=== PATIENT | female | born 1940 | race Caucasian/White ===

== ENCOUNTER 2021-02-09 11:52 | Inpatient (IN) | payer MEDICARE, OTHER ==
[~2021-02-09 11:52] MED LIST: Iopamidol 370 76% 100 ML VIAL ONE; Iopamidol-370 76% 500 ML 1 ML ONE
[2021-02-09] MEDS ORDERED: Fentanyl 100 MCG/2 ML VIAL ONE (12:19)
[2021-02-09] MEDS ORDERED: Heparin 10,000 UNITS/ 10 ML VIAL ONE (12:20)
[2021-02-09] MEDS ORDERED: Lidocaine 1% (PF) 30 ML VIAL ONE (12:26)
[2021-02-09 12:27] LABS: #Eosinphils 0.2 thou/uL (0.0-0.7); #Lymphocytes 1.7 thou/uL (1.20-3.40); #Monocytes 0.5 thou/uL (0.11-0.59); #Neutrophils 4.9 thou/uL (1.40-6.50); %Basophils 0.6 % (0.0-1.0); %Eosinophils 2.8 % (0.0-10.0); %Lymphocytes 22.9 % (21.0-51.0); %Monocytes 6.1 % (0.0-10.0); %Neutrophils 67.6 % (42.0-75.0); Hemoglobin 12.5 g/dL (12.0-16.0); Mean Corpuscular HGB CONC 32.5 g/dL (32.0-36.0); Mean Corpuscular Hemoglobin 31.2 pg (27.0-31.0); Mean Corpuscular Volume 95.8 fL (78.0-98.0); Mean Platelet Volume 9.1 fL (7.4-10.4); Platelet Count 199 thou/uL (130-400); RBC Distribution Width 12.7 % (11.5-14.5); Red Blood Cell (RBC) Count 4.02 mill/uL (4.20-5.40); White Blood Cell (WBC) Count 7.3 thou/uL (4.8-10.8)
[2021-02-09 12:41] LABS: INR-International Normal Ratio 1.1; Prothrombin Time 13.9 sec (12.0-14.7)
[2021-02-09] MEDS ORDERED: PHENYLEPHRINE-NS 100 MCG/ML 10 ML SYRINGE ONE ×2 (12:41→13:28)
[2021-02-09] MEDS ORDERED: Lidocaine 1% PF 5 ML VIAL ONE (12:41)
[2021-02-09] MEDS ORDERED: Rocuronium Bromide 10 MG/ML (10ML VIAL) ONE (12:41)
[2021-02-09] MEDS ORDERED: Dexamethasone 20 MG/5 ML VIAL ONE (12:41)
[2021-02-09] MEDS ORDERED: PROPOFOL 200 MG/20 ML VIAL ONE (12:41)
[2021-02-09] MEDS ORDERED: Succinylcholine 200 MG/10 ml SYRINGE FS ONE (12:41)
[2021-02-09] MEDS ORDERED: Ondansetron PF 4 MG/2 ML Vial ONE (12:41)
[2021-02-09 12:42] LABS: PTT 32.2 sec (22.9-36.1)
[2021-02-09 12:45] LABS: ALT (SGPT) Less than 7 U/L (8-55); AST (SGOT) 11 U/L (5-34); Albumin 3.3 g/dL (3.4-4.8); Alkaline Phosphatase 70 U/L (40-110); Anion Gap 13 mmol/L (10-20); BUN (Urea Nitrogen) 24 mg/dL (9.8-20.1); Bilirubin, Total 0.8 mg/dL (0.2-1.2); CK (CPK) 29 U/L (29-168); Calc. Creatinine Clearance 0 mL/min (70-130); Calcium 8.5 mg/dL (7.8-10.44); Carbon Dioxide 23 mmol/L (23-31); Chloride 103 mmol/L (98-107); Glucose 122 mg/dL (83-110); Potassium 4.1 mmol/L (3.5-5.1); Protein, Total 5.3 g/dL (5.8-8.1); Sodium 135 mmol/L (136-145)
[2021-02-09] MEDS ORDERED: Milk Of Magnesia 30 ML UDCUP PO PRN (13:26)
[2021-02-09] MEDS ORDERED: Acetaminophen 325 MG TAB PO PRN (13:26)
[2021-02-09] MEDS ORDERED: Communication Order-Pharmacy FS SCH (13:26)
[2021-02-09] MEDS ORDERED: Bisacodyl 10 MG SUPP PR PRN (13:26)
[2021-02-09] MEDS ORDERED: niCARdipine 25 MG in Sodium Chloride 0.9% 250 ML 240 ML IVPB PRN (13:26)
[2021-02-09] MEDS ORDERED: Propofol 1,000 MG/100 ML VIAL IV ONE (13:50)
[2021-02-09 14:25] LABS: Actual Bicarbonate (HCO3a) 16.7 mEq/L (22-28); Calcium, Ionized (arterial) 1.02 mmol/L (1.12-1.30); Carboxyhemoglobin (COHb) 1.3 gm% (0.0-3.0); Hemoglobin (Hb) 12.1 g/dL (12.0-16.0); O2 Tension (PaO2), arterial 162.3 mmHg (> 70.0); Potassium - ABG Lab 3.98 mmol/L (3.70-5.30); pH, Arterial 7.53 (7.35-7.45)
[2021-02-09 14:27] LABS: ALV-art Gradient 239.875 mmHg (0-20); CO2 Tension 20.5 mmHg (35.0-45.0); Puncture Site Arterial Line
[2021-02-09] MEDS ORDERED: Fentanyl CADD 100 ML ONE (14:44)
[2021-02-09] MEDS ORDERED: Lorazepam 2 MG/ML VIAL SLOW IVP PRN (15:15)
[2021-02-09] MEDS ORDERED: Fentanyl CADD 100 ML IV SCH (15:15)
[2021-02-09] MEDS ORDERED: Morphine 2 MG/ML VIAL SLOW IVP PRN (15:15)
[2021-02-09] MEDS ORDERED: Fentanyl BOLUS 250 ML IVPB PRN (15:15)
[2021-02-09] MEDS ORDERED: Propofol BOLUS 1,000 MG/100 ML VIAL IV PRN (15:15)
[2021-02-09] MEDS ORDERED: DISCONTINUE PREVIOUS NARCOTIC PAIN MEDICATIONS AND BENZODIAZEPINES FS SCH (15:15)
[2021-02-09] MEDS ORDERED: Pantoprazole 40 MG VIAL IVP SCH (15:45)
[2021-02-09] MEDS ORDERED: Dextrose 50% Abboject 50 ML SYRINGE SLOW IVP PRN (15:49)
[2021-02-09] MEDS ORDERED: Insulin Regular 300 UNITS/3 ML VIAL SC PRN (15:49)
[2021-02-09] MEDS ORDERED: Dextrose 5% in Water 1,000 ML IV PRN (15:49)
[2021-02-09] MEDS: Propofol 1,000 MG/100 ML VIAL IV PRN (16:51)
[2021-02-09] MEDS: Lactated Ringer's 1,000 ML IV SCH (19:25)
[2021-02-09] MEDS: Atorvastatin Calcium 40 MG TAB PO SCH (20:06)
[2021-02-09] MEDS: Docusate 100 MG CAP PO SCH (20:06)
[2021-02-10] MEDS: Propofol 1,000 MG/100 ML VIAL IV PRN (00:18)
[2021-02-10 04:03] LABS: #Lymphocytes 1.2 thou/uL (1.20-3.40); #Monocytes 0.6 thou/uL (0.11-0.59); #Neutrophils 14.2 thou/uL (1.40-6.50); %Basophils 0.1 % (0.0-1.0); %Eosinophils 0.1 % (0.0-10.0); %Lymphocytes 7.6 % (21.0-51.0); %Monocytes 3.6 % (0.0-10.0); %Neutrophils 88.6 % (42.0-75.0); Hemoglobin 12.9 g/dL (12.0-16.0); Mean Corpuscular HGB CONC 33.1 g/dL (32.0-36.0); Mean Corpuscular Hemoglobin 31.3 pg (27.0-31.0); Mean Corpuscular Volume 94.3 fL (78.0-98.0); Mean Platelet Volume 9.3 fL (7.4-10.4); Platelet Count 253 thou/uL (130-400); RBC Distribution Width 12.7 % (11.5-14.5); Red Blood Cell (RBC) Count 4.11 mill/uL (4.20-5.40)
[2021-02-10 04:44] LABS: Anion Gap 15 mmol/L (10-20); BUN (Urea Nitrogen) 24 mg/dL (9.8-20.1); Calc. Creatinine Clearance 47 mL/min (70-130); Calcium 8.4 mg/dL (7.8-10.44); Carbon Dioxide 22 mmol/L (23-31); Cardiac Risk 4.3 (Less than 4.5); Chloride 107 mmol/L (98-107); Cholesterol 126 mg/dl (< 200 Desired); Glucose 127 mg/dL (83-110); HDL Cholesterol 29 mg/dL (>60 Neg Risk); LDL Cholesterol, Calculated 76 mg/dL; Potassium 4.1 mmol/L (3.5-5.1); Sodium 140 mmol/L (136-145); Triglycerides 106 mg/dL (Less than 150)
[2021-02-10] MEDS: hydrALAZINE 20 MG/ML VIAL SLOW IVP PRN (08:39)
[2021-02-10] MEDS: Pantoprazole 40 MG VIAL IVP SCH (08:40)
[2021-02-10] MEDS: Docusate 100 MG CAP PO SCH ×2 (08:50→21:00)
[2021-02-10] MEDS: Polyethylene Glycol 3350 17 GM Packet PO SCH (08:50)
[2021-02-10] MEDS: Ondansetron PF 4 MG/2 ML Vial IVP SCH ×2 (10:44)
[2021-02-10] MEDS: Lactated Ringer's 1,000 ML IV SCH (14:51)
[2021-02-10] MEDS ORDERED: FLU VACC QS2021-22(65YR UP)/PF 240 MCG/0.7 ML SYRINGE IM ONE (15:30)
[2021-02-10] MEDS ORDERED: Sodium Chloride 0.9% 500 ML IVPB SCH (19:15)
[2021-02-10] MEDS: Atorvastatin Calcium 40 MG TAB PO SCH (21:00)
[2021-02-11] MEDS: Aspirin 325 mg Enteric Coated Tablet PO SCH (09:00)
[2021-02-11] MEDS: Docusate 100 MG CAP PO SCH ×2 (09:00→21:14)
[2021-02-11] MEDS ORDERED: Enoxaparin Sodium 30 MG/0.3 ML SYRINGE SC SCH (09:00)
[2021-02-11 09:33] LABS: #Basophils 0.1 thou/uL (0.0-0.2); #Eosinphils 0.1 thou/uL (0.0-0.7); #Lymphocytes 1.6 thou/uL (1.20-3.40); #Monocytes 1.3 thou/uL (0.11-0.59); #Neutrophils 11.7 thou/uL (1.40-6.50); %Basophils 0.4 % (0.0-1.0); %Eosinophils 0.4 % (0.0-10.0); %Lymphocytes 11.1 % (21.0-51.0); %Monocytes 8.7 % (0.0-10.0); %Neutrophils 79.4 % (42.0-75.0); Mean Corpuscular HGB CONC 32.6 g/dL (32.0-36.0); Mean Corpuscular Hemoglobin 30.9 pg (27.0-31.0); Mean Corpuscular Volume 94.8 fL (78.0-98.0); Mean Platelet Volume 9.5 fL (7.4-10.4); Platelet Count 193 thou/uL (130-400); Red Blood Cell (RBC) Count 3.89 mill/uL (4.20-5.40); White Blood Cell (WBC) Count 14.7 thou/uL (4.8-10.8)
[2021-02-11 09:54] LABS: Anion Gap 12 mmol/L (10-20); BUN (Urea Nitrogen) 31 mg/dL (9.8-20.1); Calc. Creatinine Clearance 44 mL/min (70-130); Carbon Dioxide 25 mmol/L (23-31); Chloride 108 mmol/L (98-107); Glucose 107 mg/dL (83-110); Sodium 141 mmol/L (136-145)
[2021-02-11] MEDS: Aspirin 300 MG Suppository PR SCH (09:58)
[2021-02-11] MEDS: Pantoprazole 40 MG VIAL IVP SCH (09:59)
[2021-02-11] MEDS ORDERED: Enoxaparin Sodium 40 MG/0.4 ML SYRINGE SC SCH (10:00)
[2021-02-11] MEDS: Polyethylene Glycol 3350 17 GM Packet PO SCH (13:07)
[2021-02-11] MEDS: Lactated Ringer's 1,000 ML IV SCH ×2 (13:08→18:13)
[2021-02-11] MEDS: Atorvastatin Calcium 40 MG TAB PO SCH (21:14)
[2021-02-12] MEDS: Dextrose 5 %-0.45 % NaCl 1,000 ML IV SCH ×2 (02:50→20:54)
[2021-02-12] MEDS ORDERED: Ondansetron PF 4 MG/2 ML Vial IVP PRN (07:30)
[2021-02-12] MEDS ORDERED: Senokot S 8.6-50 MG TAB PO PRN (07:30)
[2021-02-12] MEDS ORDERED: GUAIFENESIN SF SOLN 200 MG/10 ML UDCUP PO PRN (07:30)
[2021-02-12] MEDS ORDERED: Artificial Tear Sol 15 ML BOT EA EYE PRN (07:30)
[2021-02-12] MEDS ORDERED: Hydrocerin (Eucerin) Cream 120 gm Jar TOP PRN (07:30)
[2021-02-12] MEDS ORDERED: Sodium Chloride 0.65% Nasal 44 ML BOT EA NARE PRN (07:30)
[2021-02-12] MEDS ORDERED: Calcium Carbonate 500 MG ChewTAB PO PRN (07:30)
[2021-02-12] MEDS ORDERED: Loratadine 10 MG TAB PO PRN (07:30)
[2021-02-12] MEDS ORDERED: Cepastat Lozenges 1 LOZ PO PRN (07:30)
[2021-02-12] MEDS ORDERED: Loperamide HCl 2 MG CAP PO PRN (07:30)
[2021-02-12] MEDS ORDERED: Melatonin 3 MG TAB PO PRN (07:31)
[2021-02-12] MEDS: Pantoprazole 40 MG VIAL IVP SCH (08:57)
[2021-02-12] MEDS: Enoxaparin Sodium 40 MG/0.4 ML SYRINGE SC SCH (09:01)
[2021-02-12] MEDS: Aspirin 300 MG Suppository PR SCH (09:03)
[2021-02-12] MEDS: Aspirin 325 mg Enteric Coated Tablet PO SCH (09:06)
[2021-02-12] MEDS: Metoprolol Tartrate 25 MG TAB PO SCH ×2 (10:24→20:49)
[2021-02-12] MEDS: Docusate 100 MG CAP PO SCH ×2 (10:25→20:49)
[2021-02-12] MEDS: Polyethylene Glycol 3350 17 GM Packet PO SCH (10:27)
[2021-02-12] MEDS: Atorvastatin Calcium 40 MG TAB PO SCH (20:49)
[2021-02-13 06:30] LABS: #Basophils 0.1 thou/uL (0.0-0.2); #Eosinphils 0.3 thou/uL (0.0-0.7); #Lymphocytes 1.5 thou/uL (1.20-3.40); #Monocytes 0.8 thou/uL (0.11-0.59); #Neutrophils 6.9 thou/uL (1.40-6.50); %Basophils 0.6 % (0.0-1.0); %Eosinophils 3.5 % (0.0-10.0); %Lymphocytes 15.3 % (21.0-51.0); %Monocytes 8.2 % (0.0-10.0); %Neutrophils 72.4 % (42.0-75.0); Hemoglobin 12.1 g/dL (12.0-16.0); Mean Corpuscular HGB CONC 33.9 g/dL (32.0-36.0); Mean Corpuscular Hemoglobin 32.3 pg (27.0-31.0); Mean Corpuscular Volume 95.4 fL (78.0-98.0); Mean Platelet Volume 9.3 fL (7.4-10.4); Platelet Count 191 thou/uL (130-400); RBC Distribution Width 12.6 % (11.5-14.5); Red Blood Cell (RBC) Count 3.74 mill/uL (4.20-5.40); White Blood Cell (WBC) Count 9.5 thou/uL (4.8-10.8)
[2021-02-13 06:49] LABS: Anion Gap 12 mmol/L (10-20); BUN (Urea Nitrogen) 21 mg/dL (9.8-20.1); Calc. Creatinine Clearance 56 mL/min (70-130); Calcium 8.5 mg/dL (7.8-10.44); Carbon Dioxide 24 mmol/L (23-31); Chloride 107 mmol/L (98-107); Glucose 100 mg/dL (83-110); Magnesium 1.9 mg/dL (1.6-2.6); Phosphorus 2.7 mg/dL (2.3-4.7); Potassium 3.8 mmol/L (3.5-5.1); Sodium 139 mmol/L (136-145)
[2021-02-13] MEDS: Docusate 100 MG CAP PO SCH ×2 (10:35→20:20)
[2021-02-13] MEDS: Aspirin 325 MG TAB PO SCH (10:35)
[2021-02-13] MEDS: Aspirin 300 MG Suppository PR SCH (10:35)
[2021-02-13] MEDS: Enoxaparin Sodium 40 MG/0.4 ML SYRINGE SC SCH (10:35)
[2021-02-13] MEDS: Pantoprazole 40 MG VIAL IVP SCH (10:35)
[2021-02-13] MEDS: Polyethylene Glycol 3350 17 GM Packet PO SCH (10:36)
[2021-02-13] MEDS: Metoprolol Tartrate 50 MG TAB PO SCH ×2 (10:36→20:20)
[2021-02-13] MEDS: hydrALAZINE 20 MG/ML VIAL SLOW IVP PRN (12:11)
[2021-02-13] MEDS: Dextrose 5 %-0.45 % NaCl 1,000 ML IV SCH (20:20)
[2021-02-13] MEDS: Atorvastatin Calcium 40 MG TAB PO SCH (20:20)
[2021-02-13] MEDS: Labetalol HCl 100 MG/20 ML VIAL SLOW IVP PRN (23:00)
[2021-02-14] MEDS: Metoprolol Tartrate 50 MG TAB PO SCH ×2 (09:44→20:12)
[2021-02-14] MEDS: Docusate 100 MG CAP PO SCH ×2 (09:44→20:11)
[2021-02-14] MEDS: Aspirin 325 MG TAB PO SCH (09:44)
[2021-02-14] MEDS: Pantoprazole 40 MG VIAL IVP SCH (09:44)
[2021-02-14] MEDS: Aspirin 300 MG Suppository PR SCH (09:44)
[2021-02-14] MEDS: Polyethylene Glycol 3350 17 GM Packet PO SCH (09:44)
[2021-02-14] MEDS: Enoxaparin Sodium 40 MG/0.4 ML SYRINGE SC SCH (10:09)
[2021-02-14] MEDS: Dextrose 5 %-0.45 % NaCl 1,000 ML IV SCH (12:13)
[2021-02-14] MEDS: Labetalol HCl 100 MG/20 ML VIAL SLOW IVP PRN ×3 (12:19→20:46)
[2021-02-14] MEDS: Atorvastatin Calcium 40 MG TAB PO SCH (20:11)
[2021-02-15] MEDS: Labetalol HCl 100 MG/20 ML VIAL SLOW IVP PRN ×2 (00:02→04:29)
[2021-02-15] MEDS: Dextrose 5 %-0.45 % NaCl 1,000 ML IV SCH (07:40)
[2021-02-15] MEDS ORDERED: NIFEdipine XL 30 MG TAB PO SCH (09:00)
[2021-02-15] MEDS: Docusate 100 MG CAP PO SCH ×2 (09:00→21:50)
[2021-02-15] MEDS ORDERED: Metoprolol Tartrate 50 MG TAB PO SCH (14:00)
[2021-02-15] MEDS ORDERED: Amlodipine 10 MG TAB PO SCH (14:00)
[2021-02-15] MEDS: Polyethylene Glycol 3350 17 GM Packet PO SCH (15:10)
[2021-02-15] MEDS: Pantoprazole 40 MG VIAL IVP SCH (15:10)
[2021-02-15] MEDS: Atorvastatin Calcium 40 MG TAB PO SCH (21:50)
[2021-02-15] MEDS: Metoprolol Tartrate 50 MG TAB PO SCH (21:51)
[2021-02-15 23:41] LABS: SARS-CoV-2 NAA Rapid Test Not Detected (NotDetected)
[2021-02-16] MEDS: Dextrose 5 %-0.45 % NaCl 1,000 ML IV SCH (06:20)
[2021-02-16] MEDS ORDERED: Amlodipine 10 MG TAB PO SCH (09:00)
[2021-02-16] MEDS: Docusate 100 MG CAP PO SCH ×2 (09:39→21:01)
[2021-02-16] MEDS: Metoprolol Tartrate 50 MG TAB PO SCH ×2 (09:39→21:01)
[2021-02-16] MEDS: Pantoprazole 40 MG VIAL IVP SCH (09:40)
[2021-02-16] MEDS: Polyethylene Glycol 3350 17 GM Packet PO SCH (09:40)
[2021-02-16] MEDS ORDERED: Labetalol HCl 100 MG/20 ML VIAL SLOW IVP PRN (09:47)
[2021-02-16] MEDS ORDERED: hydrALAZINE 20 MG/ML VIAL SLOW IVP PRN (09:48)
[2021-02-16 10:29] VITALS: BMI 30.8
[2021-02-16 11:26] LABS: #Eosinphils 0.4 thou/uL (0.0-0.7); #Lymphocytes 1.1 thou/uL (1.20-3.40); #Monocytes 0.8 thou/uL (0.11-0.59); #Neutrophils 5.5 thou/uL (1.40-6.50); %Basophils 0.6 % (0.0-1.0); %Eosinophils 5.1 % (0.0-10.0); %Lymphocytes 14.5 % (21.0-51.0); %Monocytes 9.6 % (0.0-10.0); %Neutrophils 70.3 % (42.0-75.0); Hemoglobin 11.7 g/dL (12.0-16.0); Mean Corpuscular Hemoglobin 30.1 pg (27.0-31.0); Mean Corpuscular Volume 93.9 fL (78.0-98.0); Platelet Count 239 thou/uL (130-400); RBC Distribution Width 12.7 % (11.5-14.5); Red Blood Cell (RBC) Count 3.88 mill/uL (4.20-5.40); White Blood Cell (WBC) Count 7.8 thou/uL (4.8-10.8)
[2021-02-16 11:46] LABS: ALT (SGPT) 38 U/L (8-55); AST (SGOT) 41 U/L (5-34); Albumin 3.1 g/dL (3.4-4.8); Alkaline Phosphatase 80 U/L (40-110); Anion Gap 11 mmol/L (10-20); BUN (Urea Nitrogen) 14 mg/dL (9.8-20.1); Bilirubin, Total 1.2 mg/dL (0.2-1.2); Calc. Creatinine Clearance 64 mL/min (70-130); Calcium 8.8 mg/dL (7.8-10.44); Carbon Dioxide 25 mmol/L (23-31); Chloride 108 mmol/L (98-107); Globulin 2.2 g/dL (2.4-3.5); Glucose 109 mg/dL (83-110); Magnesium 1.5 mg/dL (1.6-2.6); Phosphorus 3.2 mg/dL (2.3-4.7); Protein, Total 5.3 g/dL (5.8-8.1); Sodium 140 mmol/L (136-145)
[2021-02-16] MEDS ORDERED: Magnesium Sulfate 4 GM in Sodium Chloride 0.9% 250 ML 250 ML IVPB SCH ×2 (12:00→14:30)
[2021-02-16] MEDS ORDERED: Electrolyte Replacement Protocol 1 EACH FS SCH (12:00)
[2021-02-16] MEDS ORDERED: Electrolyte Replacement Protocol FS PRN (14:30)
[2021-02-16] MEDS: hydrALAZINE 25 MG TAB PO SCH ×2 (14:43→21:01)
[2021-02-16] MEDS ORDERED: Dextrose 5 %-0.45 % NaCl 1,000 ML IV SCH (15:18)
[2021-02-16] MEDS ORDERED: D5W-AA 4.25% with LYTES 1,000 ML BAG IV SCH (15:45)
[2021-02-16] MEDS ORDERED: D5W-AA 4.25% with LYTES 1,000 ML IV SCH (18:00)
[2021-02-16] MEDS: Atorvastatin Calcium 40 MG TAB PO SCH (21:01)
[2021-02-17] MEDS ORDERED: Magnesium 2 GM/50 ML 2 GM in Premix Bag 1 BAG IVPB SCH (06:15)
[2021-02-17] MEDS ORDERED: Lisinopril 5 MG TAB PO SCH (09:30)
[2021-02-17] MEDS: Docusate 100 MG CAP PO SCH ×2 (09:31→21:59)
[2021-02-17] MEDS: Metoprolol Tartrate 50 MG TAB PO SCH ×2 (09:32→21:59)
[2021-02-17] MEDS: Amlodipine 10 MG TAB PO SCH ×2 (09:32→21:59)
[2021-02-17] MEDS: Polyethylene Glycol 3350 17 GM Packet PO SCH (10:13)
[2021-02-17 16:29] VITALS: BP 152/78; TEMP 97.4
[2021-02-17] MEDS: Atorvastatin Calcium 40 MG TAB PO SCH (21:59)
[2021-02-18] MEDS ORDERED: Lisinopril 5 MG TAB PO SCH (09:00)
== END 2021-02-17 21:13 | DRG 23 ==
LOC: ERS 11:52 → SURG A 13:24 → CCU 14:12 → 3SE 02-11 14:30
PROVIDERS: ADMIT Internal Medicine; ATTEND Internal Medicine
PROC: 3E03317 Introduction of Other Thrombolytic into Peripheral Vein, Percutaneous Approach (ICD-10-PCS; 2021-02-09)
PROC: 03CG3ZZ Extirpation of Matter from Intracranial Artery, Percutaneous Approach (ICD-10-PCS; principal; 2021-02-10)
PROC: 5A1935Z Respiratory Ventilation, Less than 24 Consecutive Hours (ICD-10-PCS; 2021-02-10)
PROC: 0DH67UZ Insertion of Feeding Device into Stomach, Via Natural or Artificial Opening (ICD-10-PCS; 2021-02-13)
PROC: 3E0G76Z Introduction of Nutritional Substance into Upper GI, Via Natural or Artificial Opening (ICD-10-PCS; 2021-02-13)
DX: I63.411 Cerebral infarction due to embolism of right middle cerebral artery (principal); I61.8 Other nontraumatic intracerebral hemorrhage; J96.01 Acute respiratory failure with hypoxia; N17.9 Acute kidney failure, unspecified; G81.94 Hemiplegia, unspecified affecting left nondominant side; E87.1 Hypo-osmolality and hyponatremia; G93.49 Other encephalopathy; Z20.822 Contact with and (suspected) exposure to COVID-19; I48.0 Paroxysmal atrial fibrillation; E11.69 Type 2 diabetes mellitus with other specified complication; E78.5 Hyperlipidemia, unspecified; N18.30 Chronic kidney disease, stage 3 unspecified; E11.22 Type 2 diabetes mellitus with diabetic chronic kidney disease; I12.9 Hypertensive chronic kidney disease with stage 1 through stage 4 chronic kidney disease, or unspecified chronic kidney disease; R29.715 NIHSS score 15; F17.210 Nicotine dependence, cigarettes, uncomplicated; R47.1 Dysarthria and anarthria; R29.810 Facial weakness; E66.9 Obesity, unspecified; R13.12 Dysphagia, oropharyngeal phase; Z68.31 Body mass index [BMI] 31.0-31.9, adult; Z79.899 Other long term (current) drug therapy; F10.20 Alcohol dependence, uncomplicated
CPT/HCPCS: 36415; 36416; 36596; 37195; 70450; 70496; 70498; 70551; 71045; 74230; 75902; 80048; 80053; 80061; 82550; 82805; 83036; 83735; 84100; 84443; 84484; 85025; 85610; 85730; 93005; 93306; 94002; 94003; C1887; C9113; J0360; J1100; J1644; J1650; J2001; J2405; J2704; J3010; J3475; J7030; J7042; J7050; J7120; Q9967; U0002